=== PATIENT | male | born 1960 | race African-American/Black ===

== ENCOUNTER 2018-08-29 20:45 | Emergency (ER) | payer OTHER ==
[~2018-08-29] VITALS: Ht 177.8 cm; Wt 113.4 kg
[2018-08-29] MEDS ORDERED: NAPROSYN500 MG PO (22:09)
[2018-08-29 23:09] VITALS: BP 139/85
== END 2018-08-29 22:20 | disposition home or self-care (01) ==
LOC: ER 20:45
DX: S80.02XA Contusion of left knee, initial encounter (principal); M25.462 Effusion, left knee; E11.9 Type 2 diabetes mellitus without complications; I10 Essential (primary) hypertension; W22.8XXA Striking against or struck by other objects, initial encounter; Y92.89 Other specified places as the place of occurrence of the external cause; Y99.0 Civilian activity done for income or pay; Y99.8 Other external cause status